=== PATIENT | male | born 1970 ===

== ENCOUNTER 2021-01-03 03:10 | Inpatient (IN) ==
[2021-01-03] MEDS ORDERED: PANTOPRAZOLE 40 MG VIAL IV STA (03:36)
[2021-01-03] MEDS ORDERED: ONDANSETRON 4 MG/2 ML VIAL IV STA (03:36)
[2021-01-03] MEDS ORDERED: MORPHINE 4 MG/1 ML VIAL IV STA (03:36)
[2021-01-03 03:43] LABS: Basophils % 0.3 % (0.0-0.8); Eosinophils # 0.1 10*3/uL (0.0-0.87); Eosinophils % 1.6 % (0.00-10.9); Hematocrit 27.9 VOL% (42.0-52.0); Hemoglobin 8.7 GM/DL (14.0-18.0); Immature Granulocytes % 0.5 %; Immature Granulocytes Absolute 0.04 #; Lymphocytes % 13.2 % (21.2-54.2); Mean Corpuscular HGB Conc 31.2 GM/DL (32-36); Mean Corpuscular Volume 97.9 FL (87-102); Mean Platelet Volume 10.3 FL (9.6-12.0); Monocytes % 7.9 % (1.7-12.7); Neutrophils % 76.5 % (38.7-73.9); Platelet Count 210 T/CUMM (130-400); Red Blood Count 2.85 MC/CUMM (3.8-5.5); Red Cell Distribution Width 14.8 % (9.3-17.3); White Blood Count 7.4 T/CUMM (4-12)
[2021-01-03 03:51] LABS: PT Patient Result 11.3 SECS (10.5-12.0); Partial Thromboplastin Time 30.4 SECS (23.9-33.8)
[2021-01-03] MEDS ORDERED: hydrALAZINE 20 MG/1 ML VIAL IV STA (03:58)
[2021-01-03 03:59] LABS: Alanine Aminotransferase 11 U/L (16-61); Albumin 2.2 G/DL (3.4-5.0); Alkaline Phosphatase 97 U/L (45-117); Aspartate Amino Transferase 17 U/L (0-37); Bilirubin,Total < 0.39 MG/DL (0.2-1.0); Blood Urea Nitrogen 43 MG/DL (7-18); Carbon Dioxide 19 MMOL/L (21-32); Estimated Glom Filtration Rate 17 ML/MIN; Osmolality,Calculated 295.7 MOS/KG (273-304); Potassium 3.7 MMOL/L (3.5-5.1); Sodium 145 MMOL/L (136-145); Total Protein 5.9 G/DL (6.4-8.2)
[2021-01-03 04:25] LABS: Calcium 5.7 MG/DL (8.5-10.1)
[2021-01-03 04:26] LABS: Glucose 43 MG/DL (74-106)
[2021-01-03] MEDS ORDERED: DEXTROSE 50% 25 GM/50 ML SYRINGE IV ONE (04:27)
[2021-01-03] MEDS ORDERED: DEXTROSE 50% 25 GM/50 ML VIAL IV STA ×2 (04:32→07:12)
[2021-01-03] MEDS ORDERED: GLUCAGON 1 MG VIAL IM PRN (05:27)
[2021-01-03] MEDS ORDERED: hydrALAZINE 20 MG/1 ML VIAL IV PRN (05:34)
[2021-01-03] MEDS ORDERED: ONDANSETRON 4 MG/2 ML VIAL IV PRN (05:34)
[2021-01-03] MEDS ORDERED: diphenhydrAMINE CAP 25 MG CAPSULE PO PRN (05:34)
[2021-01-03] MEDS ORDERED: MORPHINE 4 MG/1 ML VIAL IV PRN (05:34)
[2021-01-03] MEDS ORDERED: NICOTINE 21 MG/24 HR PATCH TRANSDERM PRN (05:34)
[2021-01-03] MEDS ORDERED: ACETAMINOPHEN 325 MG TABLET PO PRN (05:34)
[2021-01-03] MEDS ORDERED: SODIUM CHLORIDE 0.9% 1,000 ML IV SCH (06:00)
[2021-01-03] MEDS: DEXTROSE 5% NACL 0.45% 1,000 ML IV SCH (06:30)
[2021-01-03] MEDS: amLODIPine 10 MG TABLET PO SCH (09:19)
[2021-01-03] MEDS ORDERED: busPIRone 5 MG TABLET PO PRN (14:31)
[2021-01-03] MEDS: DEXTROSE 50% 25 GM/50 ML VIAL IV PRN ×2 (14:35→16:49)
[2021-01-03] MEDS: traMADol 50 MG TABLET PO SCH (15:25)
[2021-01-03] MEDS ORDERED: DEXTROSE 10% 1,000 ML IV SCH (17:30)
[2021-01-03 19:28] LABS: Microalbum/Creat Ratio Random 6166.7 RATIO (0-30)
[2021-01-03 19:51] LABS: Bilirubin,Urine Negative (Negative); Blood, Urine Negative (Negative); Glucose,Urine (UA) 150 mg/dL (Negative); Ketones,Urine Negative (Negative); Mucus,Urine Occasional /LPF (Occasional); Nitrite,Urine Negative (Negative); Protein,Urine >=500 MG/DL; RBC,Urine 1 /HPF (0-4); Squamous Epithelial Cell,Urine Occasional /HPF (0-10); Urine Appearance CLEAR (Clear); Urine Color Yellow (Yellow); Urine Specific Gravity 1.016 (1.001-1.035); Urine Urobilinogen < 2.0 EU/DL (0.2-1.0)
[2021-01-03] MEDS: CYCLOBENZAPRINE 10 MG TABLET PO SCH (20:40)
[2021-01-03] MEDS: CALCIUM (CARBONATE) 500 MG TABLET PO SCH (20:41)
[2021-01-04] MEDS: DEXTROSE 50% 25 GM/50 ML VIAL IV PRN ×2 (00:35→06:15)
[2021-01-04] MEDS: oxyCODONE/ACETAMINOPHEN 5-325 MG TABLET PO PRN ×2 (01:05→21:35)
[2021-01-04] MEDS: DEXTROSE 5% NACL 0.45% 1,000 ML IV SCH (04:30)
[2021-01-04 05:41] LABS: Albumin 1.9 G/DL (3.4-5.0); Bilirubin,Total 0.4 MG/DL (0.2-1.0); Osmolality,Calculated 291.8 MOS/KG (273-304); Potassium 4.8 MMOL/L (3.5-5.1); Total Protein 5.6 G/DL (6.4-8.2)
[2021-01-04 05:43] LABS: Calcium 5.8 MG/DL (8.5-10.1)
[2021-01-04] MEDS ORDERED: HYDROCORTISONE 100 MG VIAL IV ONE (05:59)
[2021-01-04] MEDS ORDERED: CALCIUM GLUCONATE 1,000 MG in SODIUM CHLORIDE 0.9% 100 ML IV ONE (08:00)
[2021-01-04] MEDS: traMADol 50 MG TABLET PO SCH (09:10)
[2021-01-04] MEDS: amLODIPine 10 MG TABLET PO SCH (09:10)
[2021-01-04] MEDS: CALCIUM (CARBONATE) 500 MG TABLET PO SCH ×3 (09:10→21:35)
[2021-01-04 16:28] LABS: Amorphous Crystals,Urine Occasional /HPF (Few); Bacteria,Urine Few /HPF (Few); Bilirubin,Urine Negative (Negative); Blood, Urine Negative (Negative); Glucose,Urine (UA) >=500 mg/dL (Negative); Hyaline Casts,Urine 4 /LPF (0-3); Ketones,Urine Negative (Negative); Mucus,Urine Occasional /LPF (Occasional); Nitrite,Urine Negative (Negative); Protein,Urine >=500 MG/DL; Squamous Epithelial Cell,Urine Occasional /HPF (0-10); Urine Appearance Slightly Hazy (Clear); Urine Color Yellow (Yellow); Urine Specific Gravity 1.013 (1.001-1.035); Urine Urobilinogen < 2.0 EU/DL (0.2-1.0)
[2021-01-04] MEDS: CYCLOBENZAPRINE 10 MG TABLET PO SCH (21:35)
[2021-01-05 06:44] LABS: Basophils % 0.5 % (0.0-0.8); Eosinophils # 0.3 10*3/uL (0.0-0.87); Eosinophils % 4.7 % (0.00-10.9); Hematocrit 25.8 VOL% (42.0-52.0); Hemoglobin 8.2 GM/DL (14.0-18.0); Immature Granulocytes % 0.2 %; Immature Granulocytes Absolute 0.01 #; Lymphocytes # 1.7 10*3/uL (1.4-4.0); Lymphocytes % 26.5 % (21.2-54.2); Mean Corpuscular HGB Conc 31.8 GM/DL (32-36); Mean Platelet Volume 10.4 FL (9.6-12.0); Monocytes % 9.4 % (1.7-12.7); Neutrophils % 58.7 % (38.7-73.9); Platelet Count 173 T/CUMM (130-400); Red Blood Count 2.66 MC/CUMM (3.8-5.5); Red Cell Distribution Width 14.9 % (9.3-17.3); White Blood Count 6.4 T/CUMM (4-12)
[2021-01-05 07:09] LABS: Albumin 1.8 G/DL (3.4-5.0); Calcium 6.3 MG/DL (8.5-10.1); Potassium 4.6 MMOL/L (3.5-5.1); Total Protein 5.4 G/DL (6.4-8.2)
[2021-01-05] MEDS: CALCIUM (CARBONATE) 500 MG TABLET PO SCH ×2 (08:44→17:14)
[2021-01-05] MEDS: traMADol 50 MG TABLET PO SCH (08:44)
[2021-01-05] MEDS: amLODIPine 10 MG TABLET PO SCH (08:44)
[2021-01-05] MEDS: DEXTROSE 5% NACL 0.45% 1,000 ML IV SCH (08:45)
[2021-01-05] MEDS ORDERED: FUROSEMIDE 80 MG TABLET PO SCH (16:00)
[2021-01-05 16:11] VITALS: BP 161/85
== END 2021-01-05 19:02 | disposition home or self-care (01) | DRG 684 ==
LOC: EDUNIT# → EDBD → SUATTDRO → N.ED 03:10 → N.EDINP 03:10 → SUATTDRO 05:27 → N.TELES 07:25
PROVIDERS: ADMIT Hospitalist; ATTEND Internal Medicine

== ENCOUNTER 2021-02-27 15:43 | Observation (INO) ==
[2021-02-27] MEDS ORDERED: GLUCAGON 1 MG VIAL IM PRN (17:45)
[2021-02-27] MEDS ORDERED: DEXTROSE 50% 25 GM/50 ML VIAL IV PRN (17:45)
[2021-02-27] MEDS ORDERED: ONDANSETRON 4 MG/2 ML VIAL IV PRN (17:45)
[2021-02-27] MEDS ORDERED: oxyCODONE/ACETAMINOPHEN 5-325 MG TABLET PO PRN (18:44)
[2021-02-27] MEDS ORDERED: FUROSEMIDE 40 MG/4 ML VIAL IV ONE (18:48)
[2021-02-27] MEDS ORDERED: busPIRone 5 MG TABLET PO PRN (18:51)
[2021-02-27 19:11] LABS: Basophils % 0.3 % (0.0-0.8); Eosinophils % 0.2 % (0.00-10.9); Hematocrit 27.6 VOL% (42.0-52.0); Hemoglobin 8.5 GM/DL (14.0-18.0); Immature Granulocytes Absolute 0.09 #; Lymphocytes # 0.6 10*3/uL (1.4-4.0); Lymphocytes % 5.9 % (21.2-54.2); Mean Corpuscular HGB Conc 30.8 GM/DL (32-36); Mean Corpuscular Volume 96.5 FL (87-102); Monocytes % 1.5 % (1.7-12.7); Neutrophils % 91.1 % (38.7-73.9); Platelet Count 299 T/CUMM (130-400); Red Blood Count 2.86 MC/CUMM (3.8-5.5); Red Cell Distribution Width 14.8 % (9.3-17.3); White Blood Count 9.3 T/CUMM (4-12)
[2021-02-27 19:33] LABS: Albumin 2.5 G/DL (3.4-5.0); Bilirubin,Total 0.5 MG/DL (0.20-1.00); Calcium 6.7 MG/DL (8.5-10.1); Thyroid Stimulating Hormone 1.1 uIU/ml (0.358-3.74); Total Protein 7.2 G/DL (6.4-8.2)
[2021-02-27 19:34] LABS: Lymphocytes 6 % (20-55); Segmented Neutrophils 94 % (50-85); Total Cells Counted 100
[2021-02-27] MEDS: CYCLOBENZAPRINE 10 MG TABLET PO SCH (20:57)
[2021-02-27] MEDS: hydrALAZINE 10 MG TABLET PO SCH (20:58)
[2021-02-27] MEDS: oxyCODONE IR 5 MG TABLET PO SCH (20:58)
[2021-02-27] MEDS ORDERED: INSULIN LISPRO 100 UNIT/ML SUBCUT SCH (21:00)
[2021-02-28 06:35] LABS: Hematocrit 25.6 VOL% (42.0-52.0); Immature Granulocytes % 0.5 %; Immature Granulocytes Absolute 0.04 #; Lymphocytes # 0.7 10*3/uL (1.4-4.0); Lymphocytes % 8.9 % (21.2-54.2); Mean Corpuscular HGB Conc 31.3 GM/DL (32-36); Mean Corpuscular Volume 95.5 FL (87-102); Mean Platelet Volume 11.3 FL (9.6-12.0); Monocytes % 3.3 % (1.7-12.7); Neutrophils % 87.3 % (38.7-73.9); Platelet Count 211 T/CUMM (130-400); Red Blood Count 2.68 MC/CUMM (3.8-5.5); Red Cell Distribution Width 14.6 % (9.3-17.3)
[2021-02-28 07:04] LABS: Calcium 6.4 MG/DL (8.5-10.1); Osmolality,Calculated 302.1 MOS/KG (273-304); Risk Ratio 3.95; VLDL Cholesterol 17.6 MG/DL
[2021-02-28] MEDS: oxyCODONE IR 5 MG TABLET PO SCH ×3 (09:56→22:39)
[2021-02-28] MEDS: PANTOPRAZOLE 40 MG TABLET PO SCH (09:57)
[2021-02-28] MEDS: hydrALAZINE 10 MG TABLET PO SCH ×3 (09:57→22:37)
[2021-02-28] MEDS: amLODIPine 10 MG TABLET PO SCH (09:57)
[2021-02-28] MEDS: FUROSEMIDE 80 MG TABLET PO SCH (16:08)
[2021-02-28] MEDS: CALCIUM (CARBONATE) 500 MG TABLET PO SCH ×2 (16:09→22:38)
[2021-02-28] MEDS: CYCLOBENZAPRINE 10 MG TABLET PO SCH (22:37)
[2021-03-01] MEDS ORDERED: MULTIVITAMIN (CENTRUM) TABLET PO SCH (09:00)
[2021-03-01] MEDS: hydrALAZINE 10 MG TABLET PO SCH (09:45)
[2021-03-01] MEDS: oxyCODONE IR 5 MG TABLET PO SCH (09:45)
[2021-03-01] MEDS: PANTOPRAZOLE 40 MG TABLET PO SCH (09:45)
[2021-03-01] MEDS: CALCIUM (CARBONATE) 500 MG TABLET PO SCH (09:46)
[2021-03-01] MEDS: FUROSEMIDE 80 MG TABLET PO SCH (09:46)
[2021-03-01] MEDS: amLODIPine 10 MG TABLET PO SCH (09:46)
[2021-03-01 12:27] VITALS: BP 160/82
== END 2021-03-01 13:00 | disposition home or self-care (01) ==
LOC: N.TELEN 17:32 → INTOOBSV 17:32
PROVIDERS: ADMIT Internal Medicine; ATTEND Internal Medicine Geriatric Medicine